=== PATIENT | male | born 1965 | race Caucasian/White ===

== ENCOUNTER 2016-08-10 23:29 | Emergency (ER) | payer OTHER ==
[2016-08-10] MEDS ORDERED: KETOROLAC TROMETHAMINE 30 MG/ML VIAL IM ONE (23:43)
[2016-08-10] MEDS ORDERED: MORPHINE SULFATE 4 MG/ML SYRG SC ONE (23:43)
[2016-08-10] MEDS ORDERED: KETOROLAC TROMETHAMINE 30 MG/ML VIAL ONE (23:48)
[2016-08-10] MEDS ORDERED: MORPHINE SULFATE 4 MG/ML SYRG ONE (23:48)
--- NOTE | 2016-08-10 23:50 | ERNOTE ---
Back Pain ER HPI Date of Service: 08/10/16 Presenting Symptoms: injury/pain to back, hx chronic back pain Time Seen by Provider: 08/10/16 23:37 Source: patient Exam Limitations: no limitations Immunizations: IMMUNIZATION HX Immunizations Up to Date Yes History of Influenza Vaccine Yes Hx Pneumococcal Vaccination No Allergies/Adverse Reactions: Allergies No Known Allergies Allergy (Verified 05/20/12 14:43) Home Medications: HOME MEDICATIONS Amlodipine Besylate 5 mg PO DAILY 08/10/16 [Last Taken Unknown] HYDROcodone/ACETAMINOPHEN [Ball 5-325] 1 each PO Q4H PRN #12 tablet 08/11/16 [ Last Taken Unknown] Narrative: This is a 51-year-old male who has a history of episodic lower back pain. The patient states that he was twisting to lift up a box earlier this evening when he felt a "pop" in his back. He experienced a sharp lancinating pain in the region of his left sacroiliac joint. Since then he has had trouble sitting down. He has trouble bending over. He especially has trouble twisting to the right. Patient denies any loss of control of bowel or bladder. He did not fall. There was no trauma. He has no other complaints. Timing: Reports: constant Quality/Severity: Reports: severe, stabbing Location of pain: Reports: lower back Activities at Onset: Reports: other - twisting Recent Injury?: Reports: possibly Possible Precipitating Factor: Reports: turning/bending Modifying Factors - (Improves): Reports: nothing Modifying Factors - (Worsens): Reports: nothing Associated Symptoms: Reports: none Prior Treament: Reports: similar symptoms before Review of Systems - Narrative Narrative: Except as above the remainder of the review of systems is negative. - Review of Systems Constitutional: Present: no symptoms reported EYE: Present: no symptoms reported ENT: Present: no symptoms reported Respiratory: Present: no symptoms reported Cardiology: Present: no symptoms reported Gastrointestinal/Abdominal: Present: no symptoms reported Musculoskeletal: Present: back pain, joint pain Skin: Present: no symptoms reported Neurological: Present: no symptoms reported Endocrine: Present: no symptoms reported Hematologic/Lymphatic: Present: no symptoms reported All Other Systems: All systems neg except as marked - Patient's Past Medical History Patient History - Medical: No pertinent hx Patient History - Cardiac/Respiratory: Bronchitis, Hypertension Patient History - Cancer: No Hx of Cancer Patient History - Surgical Procedures: No surgical history Patient History - Other: None - Social History Living Situations: home Abuse History: No History of abuse Psych History: No pertinent hx Smoking Status: Current every day smoker Patient requests Smoking Cessation Consult: No Initiate information on Smoking Cessation: No Alcohol Use: none Drug Use: none - Immunizations Immunizations Up to Date: Yes Hx Pneumococcal Vaccination: No History of Influenza Vaccine: Yes Physical Exam - Physical Exam General Appearance: Present: wd/wn, alert, no apparent distress Eye Exam: Normal inspection: bilateral Ears, Nose, Throat: Present: normal ENT inspection, normal pharynx Neck: Present: normal inspection, nontender Respiratory: Present: no respiratory distress, lungs clear Cardiovascular/Chest: Present: regular rate, rhythm, no murmur Gastrointestinal/Abdominal: Present: normal bowel sounds, nontender, soft Back Exam: Present: normal inspection, other - patient has specific point tenderness over the leg left sacroiliac joint. Palpation here absolutely reproduces his complaint 100%. He has extreme limitation of rotation to the right. Flexion and rotation of the right also is limited due to pain Extremity Exam: Present: normal inspection, non-tender, normal range of motion, no edema Neurological Exam: Present: alert, oriented, normal mood/affect, no motor/ sensory deficits DTR: N=norm/NB=norm/brisk/A=abs/DD=dull/dimin/HC=hyperactive: Knee (R): Normal, Knee (L): Normal Skin Exam: Present: normal color, warm/dry Lymphatic Exam: Present: no adenopathy ED Progress - Vital Signs Patient's Vital Signs:: I have reviewed the patient's vital signs. Vital Signs: Vital Signs 08/10/16 23:38 Temperature 36.3 C L Pulse Rate 82 Respiratory 18 Rate Blood Pressure 175/110 O2 Sat by Pulse 96 Oximetry - Progress/Reassessment Chief Complaint: Back Pain Departure Clinical Impression: Sacroiliac (ligament) sprain - Departure Disposition: Home self-care Condition: Stable Instructions: Sacroiliac Joint Dysfunction Additional Instructions: Take the prescribed medicine to help with pain. No driving or operating machinery while taking this medicine. He should sleep with a pillow between your knees. Prescriptions: HYDROcodone/ACETAMINOPHEN [Ball 5-325] 1 each PO Q4H PRN #12 tablet PRN Reason: Pain
[2016-08-11 00:10] VITALS: BP 155/107
== END 2016-08-11 00:33 | disposition home or self-care (01) ==
LOC: ER 23:29
DX: S33.6XXA Sprain of sacroiliac joint, initial encounter (principal); X50.0XXA Overexertion from strenuous movement or load, initial encounter; Y93.9 Activity, unspecified; Y92.9 Unspecified place or not applicable; I10 Essential (primary) hypertension; Z72.0 Tobacco use